=== PATIENT | male | born 2000 | race African-American/Black ===

== ENCOUNTER 2020-12-14 22:26 | Emergency (ER) | payer BC ==
[2020-12-14 23:09] LABS: Absolute Lymphocytes (CBC) 1.7 K/uL (0.7-4.9); Basophils % 0.8 % (0-1.3); Hematocrit 46.1 % (39.6-49.0); MPV 9.3 fL (7.6-11.3); RBC Red Blood Cell Count 5.24 M/uL (4.33-5.43)
[2020-12-14 23:18] LABS: BUN Blood Urea Nitrogen 12 mg/dL (7-18); Bicarbonate 30 mmol/L (21-32); Glucose Level 93 mg/dL (74-106); Potassium 4.2 mmol/L (3.5-5.1); Sodium Level 140 mmol/L (136-145)
--- NOTE | 2020-12-14 23:38 | EDPHYS ---
Physician Documentation [facility] Name: Bentley Perez Age: 20 yrs Sex: Male : 2000 Arrival Date: 12/14/2020 Time: 22:29 Bed 20 Private MD: ED Physician Yrn Sher HPI: 12/14 22:36 This 20 yrs old Black Male presents to ER via Law Enforcement with complaints of pm1 Swallowed Foreign Body. 22:36 Patient reports swallowing a razor blade to come to the ER. Onset: The symptoms/episode pm1 began/occurred just prior to arrival. Severity of symptoms: Pain is currently a 0 / 10. The patient has not experienced similar symptoms in the past. The patient has not recently seen a physician. 22:36 Patient escorted here by police officers from detention. pm1 Historical: - Allergies: 22:34 No Known Allergies; sf - Home Meds: 22:34 None [Active]; sf - PMHx: 22:34 None; sf - PSHx: 22:34 None; sf - Immunization history:: Adult Immunizations up to date. - Social history:: Smoking status: Patient reports the use of cigarette tobacco products, denies chronic smoking, but will smoke occasionally, Patient/guardian denies using alcohol, street drugs. ROS: 22:36 Constitutional: Negative for fever, chills, and weight loss, ENT: Negative for injury, pm1 pain, and discharge, Neck: Negative for injury, pain, and swelling, Cardiovascular: Negative for chest pain, palpitations, and edema, Respiratory: Negative for shortness of breath, cough, wheezing, and pleuritic chest pain, Abdomen/GI: Negative for abdominal pain, nausea, vomiting, diarrhea, and constipation, Back: Negative for injury and pain, MS/Extremity: Negative for injury and deformity, Skin: Negative for injury, rash, and discoloration. 22:36 Neuro: Negative for headache, weakness, numbness, tingling, and seizure. Exam: 22:36 Constitutional: This is a well developed, well nourished patient who is awake, alert, pm1 and in no acute distress. Head/Face: Normocephalic, atraumatic. 22:36 Neck: Trachea midline, no thyromegaly or masses palpated, and no cervical lymphadenopathy. Supple, full range of motion without nuchal rigidity, or vertebral point tenderness. No Meningismus. 22:36 Skin: Warm, dry with normal turgor. Normal color with no rashes, no lesions, and no evidence of cellulitis. MS/ Extremity: Pulses equal, no cyanosis. Neurovascular intact. Full, normal range of motion. 22:36 ENT: Posterior pharynx: is normal, airway is patent, no signs of bleeding. 22:36 Cardiovascular: Exam negative for acute changes, Rate: normal, Rhythm: regular, Pulses: no pulse deficits are appreciated. 22:36 Respiratory: Exam negative for acute changes, respiratory distress, shortness of breath. 22:36 Abdomen/GI: Exam negative for acute changes, Inspection: abdomen appears normal, Palpation: abdomen is soft and non-tender, in all quadrants. 22:36 Neuro: Exam negative for acute changes, Orientation: is normal, Mentation: is normal, Motor: is normal, moves all fours. Vital Signs: 22:30 BP 141 / 75; Pulse 73; Resp 16; Temp 98.1; Pulse Ox 100% ; Weight 70.76 kg; Height 5 sf ft. 6 in. (167.64 cm); Pain 7/10; 23:53 BP 129 / 83; Pulse 75; Resp 16; Pulse Ox 100% ; sf 22:30 Body Mass Index 25.18 (70.76 kg, 167.64 cm) sf MDM: 22:34 Patient medically screened. pm1 23:36 Data reviewed: vital signs. Data interpreted: Pulse oximetry: on room air is 100 %. pm1 Interpretation: normal. Counseling: I had a detailed discussion with the patient and/or guardian regarding: the historical points, exam findings, and any diagnostic results supporting the discharge/admit diagnosis, lab results, radiology results, the need for outpatient follow up, to return to the emergency department if symptoms worsen or persist or if there are any questions or concerns that arise at home. 12/14 22:33 Order name: CBC with Diff pm1 12/14 22:33 Order name: BMP; Complete Time: 23:34 pm1 12/14 22:34 Order name: CBC with Automated Diff; Complete Time: 23:15 EDMS 12/14 22:39 Order name: Chest Single View XRAY pm1 12/14 22:39 Order name: XRAY Abdomen 1 View (KUB) pm1 12/14 22:33 Order name: IV Saline Lock; Complete Time: 22:47 pm1 Administered Medications: No medications were administered Disposition: 12/15 06:58 Co-signature as Attending Physician, Yrn Sher MD I agree with the assessment and [facility] plan of care. Disposition: 12/14/20 23:37 Discharged to Home. Impression: Person with feared health complaint in whom no diagnosis is made. - Condition is Stable. - Medication Reconciliation Form, Thank You Letter, Antibiotic Education, Prescription Opioid Use form. - Follow up: Emergency Department; When: As needed; Reason: Worsening of condition. Follow up: Private Physician; When: 2 - 3 days; Reason: Recheck today's complaints, Continuance of care, Re-evaluation by your physician. - Problem is new. - Symptoms are unchanged. Signatures: Dispatcher [employer] [facility] Yrn Sher MD MD cha Marinas, Patrick, COMMISSARY STEWARD COMMISSARY STEWARD pm1 Maximino Casey RN RN sf Corrections: (The following items were deleted from the chart) 12/14 23:00 22:34 Abdomen Acute Series+RAD.RAD.BRZ ordered. [facility] 23:53 23:37 12/14/2020 23:37 Discharged to Home. Impression: Person with feared health sf complaint in whom no diagnosis is made. Condition is Stable. Forms are Medication Reconciliation Form, Thank You Letter, Antibiotic Education, Prescription Opioid Use. Follow up: Emergency Department; When: As needed; Reason: Worsening of condition. Follow up: Private Physician; When: 2 - 3 days; Reason: Recheck today's complaints, Continuance of care, Re-evaluation by your physician. Problem is new. Symptoms are unchanged. pm1
--- NOTE | 2020-12-14 23:38 | ER ---
Nurse's Notes [facility] Name: Bentley Perez Age: 20 yrs Sex: Male : 2000 Arrival Date: 12/14/2020 Time: 22:29 Bed 20 Private MD: Diagnosis: Person with feared health complaint in whom no diagnosis is made Presentation: 12/14 22:30 Chief complaint: Patient states: From [facility], swallowed a razor blade at 1900, sf complains of mild abdominal pain, no nausea, no vomiting, no bleeding. Coronavirus screen: Client denies travel out of the [place] in the last 14 days. At this time, the client does not indicate any symptoms associated with coronavirus-19. Ebola Screen: Patient negative for fever greater than or equal to 101.5 degrees Fahrenheit, and additional compatible Ebola Virus Disease symptoms Patient denies exposure to infectious person. Patient denies travel to an Ebola-affected area in the 21 days before illness onset. No symptoms or risks identified at this time. Initial Sepsis Screen: Does the patient meet any 2 criteria? No. Patient's initial sepsis screen is negative. Does the patient have a suspected source of infection? No. Patient's initial sepsis screen is negative. Risk Assessment: Do you want to hurt yourself or someone else? Patient reports no desire to harm self or others. Onset of symptoms was December 14, 2020 at 19:00. 22:30 Method Of Arrival: Law Enforcement: [place] [employer] 22:30 Acuity: DORIS 3 sf Triage Assessment: 22:34 General: Appears in no apparent distress. comfortable, Behavior is calm, cooperative. sf Pain: Complains of pain in abdomen Pain currently is 7 out of 10 on a pain scale. Neuro: No deficits noted. Level of Consciousness is awake, alert, Oriented to person, place, time, situation. Cardiovascular: No deficits noted. Patient's skin is warm and dry. Respiratory: No deficits noted. Airway is patent Respiratory effort is even, unlabored, Respiratory pattern is regular, symmetrical. GI: Abdomen is non-distended, Reports lower abdominal pain, Patient currently denies diarrhea, nausea, vomiting. : No signs and/or symptoms were reported regarding the genitourinary system. Historical: - Allergies: 22:34 No Known Allergies; sf - Home Meds: 22:34 None [Active]; sf - PMHx: 22:34 None; sf - PSHx: 22:34 None; sf - Immunization history:: Adult Immunizations up to date. - Social history:: Smoking status: Patient reports the use of cigarette tobacco products, denies chronic smoking, but will smoke occasionally, Patient/guardian denies using alcohol, street drugs. Screenin:35 Abuse screen: Denies threats or abuse. Denies injuries from another. Nutritional sf screening: No deficits noted. Tuberculosis screening: No symptoms or risk factors identified. Never had TB. Possible symptoms: None Risk factors: None. Fall Risk None identified. No fall in past 12 months (0 pts). No secondary diagnosis (0 pts). IV access (20 points). Ambulatory Aid- None/Bed Rest/Nurse Assist (0 pts). Gait- Normal/Bed Rest/Wheelchair (0 pts) Mental Status- Oriented to own ability (0 pts). Total Montez Fall Scale indicates No Risk (0-24 pts). Assessment: 22:36 Reassessment: SEE TRIAGE ASSESSMENT. sf Vital Signs: 22:30 BP 141 / 75; Pulse 73; Resp 16; Temp 98.1; Pulse Ox 100% ; Weight 70.76 kg; Height 5 sf ft. 6 in. (167.64 cm); Pain 7/10; 23:53 BP 129 / 83; Pulse 75; Resp 16; Pulse Ox 100% ; sf 22:30 Body Mass Index 25.18 (70.76 kg, 167.64 cm) ED Course: 22:29 Patient arrived in ED. mw2 22:30 Maximino Casey RN is Primary Nurse. sf 22:30 Jose Dempsey NP is PHCP. pm1 22:30 Yrn Sher MD is Attending Physician. pm1 22:34 Triage completed. sf 22:34 Arm band placed on. sf 22:36 Patient has correct armband on for positive identification. Bed in low position. Call sf light in reach. Side rails up X 1. Pulse ox on. NIBP on. Door closed. Noise minimized. Visitors limited. Lights dimmed. Verbal reassurance given. 22:40 Initial lab(s) drawn, by me, sent to lab. Inserted saline lock: 20 gauge in right sf antecubital area, using aseptic technique. Blood collected. 22:47 CBC with Diff Sent. sf 22:47 Chest Single View XRAY Sent. sf 22:47 XRAY Abdomen 1 View (KUB) Sent. sf 22:47 X-ray(s) taken. sf 23:00 Chest Single View XRAY In Process Unspecified. EDMS 23:00 XRAY Abdomen 1 View (KUB) In Process Unspecified. EDMS 23:52 No provider procedures requiring assistance completed. IV discontinued, intact, sf bleeding controlled, No redness/swelling at site. Pressure dressing applied. 12/15 00:05 Authorization code [id number]. mw2 Administered Medications: No medications were administered Outcome: 12/14 23:37 Discharge ordered by . pm1 23:52 Discharged to Law Enforcement 23:52 Condition: stable 23:52 Discharge instructions given to patient, Instructed on discharge instructions, follow up and referral plans. Demonstrated understanding of instructions, follow-up care. 23:53 Patient left the ED. sf Signatures: Dispatcher [employer] EDOK Jose Dempsey NP NEIGHBORHOOD WORKER pm1 Daphne Bello mw2 Maximino Casey, RN RN sf
[2020-12-15 01:02] VITALS: BP 141/75; TEMP 98.1; O2SAT 100
--- NOTE | 2020-12-15 07:37 | RAD REPORT ---
EXAM DESCRIPTION: RAD - Abdomen 1 View (KUB) - 12/14/2020 11:00 pm CLINICAL HISTORY: Abdomen pain. Swallowed a foreign body FINDINGS: The bowel gas pattern is unremarkable. A radiopaque foreign body is not seen
--- NOTE | 2020-12-15 07:38 | RAD REPORT ---
EXAM DESCRIPTION: Michelle Single View12/14/2020 11:00 pm CLINICAL HISTORY: Chest pain/swallowed a foreign body COMPARISON: none FINDINGS: The lungs appear clear of acute infiltrate. The heart is normal size A radiopaque foreign body is not seen IMPRESSION: No acute abnormalities displayed
== END 2020-12-14 23:53 | disposition home or self-care (01) ==
LOC: ER 22:26
DX: Z71.1 Person with feared health complaint in whom no diagnosis is made (principal); F17.210 Nicotine dependence, cigarettes, uncomplicated
CPT/HCPCS: 36415; 71045; 74018; 80048; 85025; 99284

== ENCOUNTER 2020-12-15 16:19 | Emergency (ER) | payer BC ==
--- NOTE | 2020-12-15 16:54 | RAD REPORT ---
EXAM DESCRIPTION: RAD - Chest Single View - 12/15/2020 4:44 pm CLINICAL HISTORY: fb, foreign body ingestion COMPARISON: December 14 TECHNIQUE: AP portable chest image was obtained 12/15/2020 4:44 pm . FINDINGS: Lungs are clear. Heart and vasculature are normal. No measurable pleural effusion and no p neumothorax. Metallic foreign body is present in the midline lower chest indicating distal thoracic e sophagus positioning. No acute aortic findings suspected. IMPRESSION: Metallic foreign body is in the distal thoracic esophagus.
--- NOTE | 2020-12-15 16:58 | RAD REPORT ---
EXAM DESCRIPTION: RAD - Abdomen 1 View (KUB) - 12/15/2020 4:44 pm CLINICAL HISTORY: fb Foreign body ingestion COMPARISON: Single-view chest same date, KUB December 14 FINDINGS: Metallic foreign body overlies the low midline chest indicating distal thoracic esophagus position. There is a second metallic foreign body in the left mid abdomen. Location of the second abd ominal foreign body is less definitive. The patient could have a J-shaped stomach that extends low in to the abdomen. Alternatively, the foreign body would be in the small bowel. Positioning in the colon is not suspected. No bowel obstruction, free air or pneumatosis identifiable. No significant bony findings IMPRESSION: Two foreign bodies are present. I foreign bodies in the distal thoracic esophagus. The second foreign body is in the left mid abdomen near the midline. This could be small bowel or pos sibly still within the lumen of a J shaped stomach. No free air, pneumatosis or other finding to suspect perforation.
[2020-12-15 17:31] LABS: Basophils % 0.7 % (0-1.3); Hematocrit 44.4 % (39.6-49.0); Lymphocytes % 27.3 % (15.3-44.8); RBC Red Blood Cell Count 5.07 M/uL (4.33-5.43)
[2020-12-15 17:45] LABS: BUN Blood Urea Nitrogen 7 mg/dL (7-18); Bicarbonate 32 mmol/L (21-32); Glucose Level 98 mg/dL (74-106); Potassium 4.1 mmol/L (3.5-5.1); Sodium Level 142 mmol/L (136-145)
--- NOTE | 2020-12-15 20:45 | ER ---
Nurse's Notes [facility] Name: Bentley Perez Age: 20 yrs Sex: Male : 2000 Arrival Date: 12/15/2020 Time: 16:20 Bed 30 Private MD: Diagnosis: Foreign body in esophagus;Foreign body in stomach Presentation: 12/15 16:21 Chief complaint: Patient states: swallowed "chicken wire" at 9 am this morning. Pt ss states he was feeling crazy when he did it. Admits to smoking synthetic marijuana regularly. 16:21 Coronavirus screen: Client denies travel out of the [place] in the last 14 days. Ebola ss Screen: Patient denies exposure to infectious person. Patient denies travel to an Ebola-affected area in the 21 days before illness onset. Initial Sepsis Screen: Does the patient meet any 2 criteria? No. Patient's initial sepsis screen is negative. Does the patient have a suspected source of infection? No. Patient's initial sepsis screen is negative. Risk Assessment: Do you want to hurt yourself or someone else? Patient reports no desire to harm self or others. 16:21 Method Of Arrival: Law Enforcement: [place] [employer] 16:21 Acuity: DORIS 3 ss 16:21 Onset of symptoms was December 15, 2020 at 09:00. ss Historical: - Allergies: 16:22 No Known Allergies; ss - Home Meds: 16:22 None [Active]; ss - PMHx: 16:22 None; ss - PSHx: 16:22 None; ss - Immunization history:: Adult Immunizations up to date. - Social history:: Smoking status: Patient denies any tobacco usage or history of. Patient uses synthetic marijuana (K2). Screenin:23 Abuse screen: Denies threats or abuse. Denies injuries from another. Nutritional ss screening: No deficits noted. Tuberculosis screening: Never had TB. Fall Risk None identified. Assessment: 16:21 Reassessment:. General: Appears in no apparent distress. comfortable, Behavior is calm, ss cooperative. Pain: Complains of pain in abdomen Pain currently is 6 out of 10 on a pain scale. Quality of pain is described as aching, Pain began this morning Is continuous. Neuro: Level of Consciousness is awake, alert, obeys commands, Oriented to person, place, time, situation. Cardiovascular: Capillary refill < 3 seconds is brisk in bilateral fingers. Respiratory: Airway is patent Respiratory effort is even, unlabored, Respiratory pattern is regular, symmetrical. GI: Patient currently denies diarrhea, nausea, vomiting. EENT: Nares are clear. Derm: Skin is intact, is healthy with good turgor, Skin is dry, Skin is pink, warm \\T\\ dry. normal. Musculoskeletal: Circulation, motion, and sensation intact. Range of motion: intact in all extremities, Pt remains in forensic restraints with two guards at bedside. 16:46 Reassessment: Pt back from XRAY. No apparent distress noted. ss 17:27 General: Appears comfortable, Behavior is calm, cooperative. Pain: Denies pain. aa5 Respiratory: Airway is patent Respiratory effort is even, unlabored, Respiratory pattern is regular, symmetrical. Derm: Skin is dry, Skin is normal, Skin temperature is warm. 19:30 Reassessment: Patient is alert, oriented x 3, equal unlabored respirations, skin bb warm/dry/pink. pt resting quietly, [employer] guards at bedside. 21:16 Reassessment: Patient is alert, oriented x 3, equal unlabored respirations, skin bb warm/dry/pink. pt resting quietly, [employer] guards at bedside, awaiting transfer. 21:40 Reassessment: report given to Alberto WONG at [facility]. bb 22:19 Reassessment: pt resting quietly, resp unlabored, awaiting transportation to [facility], [employer] guards at bedside. 23:56 Reassessment: Patient is alert, oriented x 3, equal unlabored respirations, skin bb warm/dry/pink. IV to right AC intact, no erythema or edema noted, EMS at bedside for transfer of pt to [facility]. Pt is accompanied by [employer] guards. Vital Signs: 16:21 Pulse 86; Temp 98.4(TE); Pulse Ox 99% on R/A; ss 16:22 Resp 16; Weight 70.76 kg; Height 5 ft. 6 in. (167.64 cm); Pain 6/10; ss 17:05 BP 124 / 65; Pulse 62; Resp 16; Temp 98.3; Pulse Ox 97% ; ds4 22:49 BP 134 / 115; Pulse 77; Resp 16 S; Pulse Ox 97% on R/A; bb 23:57 BP 112 / 53; Pulse 59; Resp 16 S; Temp 98.3(O); Pulse Ox 100% on R/A; bb 16:22 Body Mass Index 25.18 (70.76 kg, 167.64 cm) ED Course: 16:20 Patient arrived in ED. ss 16:21 [facility] Murdock [facility]-C [facility]. kb 16:21 Kenneth Gonzalez MD is Attending Physician. kb 16:22 Arm band placed on right wrist. ss 16:23 Patient has correct armband on for positive identification. Bed in low position. Call light in reach. 16:29 Margie Brown, MARVIN is Primary Nurse. ss 16:38 Triage completed. ss 16:42 Abdomen 1 View (KUB) XRAY In Process Unspecified. EDMS 16:42 Chest Single View XRAY In Process Unspecified. EDMS 17:25 Initial lab(s) drawn, by me, sent to lab. Inserted saline lock: 20 gauge in right aa5 antecubital area, using aseptic technique. Blood collected. 18:18 initiated transfer to [facility], pt will be considered when covid test is bd complete. 19:05 Report given to Deloris Rabago RN. aa5 19:15 Called [facility] to update them on the covid results and spoke with Juan Pablo at 1923. tt3 Stated he would start working on the request. 21:41 No provider procedures requiring assistance completed. bb 22:21 Patient transferred, IV remains in place. bb Administered Medications: No medications were administered Outcome: 20:44 ER care complete, transfer ordered by . kb 22:20 Instructed on the need for transfer. bb 23:57 Transferred by ground EMS Transfer form completed. X-rays sent w/ patient. Note: pt bb accompanied by [employer] guards 23:57 Condition: stable 23:58 Patient left the ED. bb Signatures: Dispatcher [employer] EDMS Mirta Murdock FNP-C FNP-Marleni Lancaster Brenda, RN RN bb Mihaela Mata RN RN aa5 Margie Brown RN RN Royce Sutton ds4 Jake Reyes tt3 Corrections: (The following items were deleted from the chart) 21:19 17:05 BP 124 / 65; ss ds4
--- NOTE | 2020-12-15 20:45 | EDPHYS ---
Physician Documentation [facility] Name: Bentley Perez Age: 20 yrs Sex: Male : 2000 Arrival Date: 12/15/2020 Time: 16:20 Bed 30 Private MD: ED Physician Kenneth Gonzalez HPI: 12/15 17:44 This 20 yrs old Black Male presents to ER via [employer] with complaints of kb Swallowed Foreign Body. 17:44 The patient or guardian reports the patient has a suspected foreign body, that has been kb ingested. The reported likely foreign body is a piece of metal. Onset: The symptoms/episode began/occurred today, at 09:00. Current symptoms: foreign body sensation. Treatment Prior to Arrival: none. The patient has not experienced similar symptoms in the past. The patient has been recently seen at the [facility] Emergency Department. Pt reports he swallowed a couple of pieces of metal off of a fence. Denies suicidal ideations. States "I was just feeling crazy". Historical: - Allergies: 16:22 No Known Allergies; ss - Home Meds: 16:22 None [Active]; ss - PMHx: 16:22 None; ss - PSHx: 16:22 None; ss - Immunization history:: Adult Immunizations up to date. - Social history:: Smoking status: Patient denies any tobacco usage or history of. Patient uses synthetic marijuana (K2). ROS: 17:43 Constitutional: Negative for fever, chills, and weight loss, ENT: Negative for injury, kb pain, and discharge, Cardiovascular: Negative for chest pain, palpitations, and edema, Respiratory: Negative for shortness of breath, cough, wheezing, and pleuritic chest pain, Abdomen/GI: Negative for abdominal pain, nausea, vomiting, diarrhea, and constipation, MS/Extremity: Negative for injury and deformity, Skin: Negative for injury, rash, and discoloration, Neuro: Negative for headache, weakness, numbness, tingling, and seizure. Exam: 17:43 Constitutional: This is a well developed, well nourished patient who is awake, alert, kb and in no acute distress. Head/Face: Normocephalic, atraumatic. Cardiovascular: Regular rate and rhythm with a normal S1 and S2. No gallops, murmurs, or rubs. No pulse deficits. Respiratory: Respirations even and unlabored. No increased work of breathing, no retractions or nasal flaring. Abdomen/GI: Soft, non-tender. No distention Skin: Warm, dry with normal turgor. Normal color. MS/ Extremity: Pulses equal, no cyanosis. Neurovascular intact. Full, normal range of motion. Neuro: Awake and alert, GCS 15, oriented to person, place, time, and situation. Moves all extremities. Normal gait. Vital Signs: 16:21 Pulse 86; Temp 98.4(TE); Pulse Ox 99% on R/A; ss 16:22 Resp 16; Weight 70.76 kg; Height 5 ft. 6 in. (167.64 cm); Pain 6/10; ss 17:05 BP 124 / 65; Pulse 62; Resp 16; Temp 98.3; Pulse Ox 97% ; ds4 22:49 BP 134 / 115; Pulse 77; Resp 16 S; Pulse Ox 97% on R/A; bb 23:57 BP 112 / 53; Pulse 59; Resp 16 S; Temp 98.3(O); Pulse Ox 100% on R/A; bb 16:22 Body Mass Index 25.18 (70.76 kg, 167.64 cm) ss MDM: 16:21 Patient medically screened. kb 17:43 Data reviewed: vital signs, nurses notes. Data interpreted: Pulse oximetry: on room air kb is 99 %. Interpretation: normal. Counseling: I had a detailed discussion with the patient and/or guardian regarding: the historical points, exam findings, and any diagnostic results supporting the discharge/admit diagnosis, lab results, radiology results, the need to transfer to another facility, [facility] transfer. 19:51 Physician consultation: Carroll Page MD was contacted at 19:52, regarding consult, kb after a discussion of the case, a recommendation for transfer for higher level of care is made, needs thoracic surgery. ED course: [facility] has no bed for pt. [facility] gave authorization to transfer to any facility. 20:36 ED course: Transfer initiated to [facility]. kb 20:43 ED course: Managed care called back. A bed opened up. Transfer to [facility] cancelled. . kb 21:03 ED course: Pt accepted by general surgeon for consult. Awaiting callback from medicine kb service. 21:07 ED course: Pt accepted for transfer by Dr Dc with [facility] medicine. kb 12/15 16:57 Order name: CBC with Diff; Complete Time: 17:37 kb 12/15 16:57 Order name: Basic Metabolic Panel; Complete Time: 17:45 kb 12/15 16:22 Order name: Abdomen 1 View (KUB) XRAY; Complete Time: 16:59 kb 12/15 17:22 Order name: COVID-19 : Document "Date of Symptom Onset" if Symptomatic. bd 12/15 19:06 Order name: SARS-COV-2 RT PCR; Complete Time: 19:12 EDMS 12/15 16:23 Order name: Chest Single View XRAY; Complete Time: 16:57 kb 12/15 16:57 Order name: IV Start; Complete Time: 17:27 kb Administered Medications: No medications were administered Disposition: 12/16 08:11 Co-signature as Attending Physician, Kenneth Gonzalez MD I agree with the assessment and kdr plan of care. Disposition: 12/15/20 20:44 Transfer ordered to [facility]. Diagnosis are Foreign body in esophagus, Foreign body in stomach. - Reason for transfer: Higher level of care. - Accepting physician is Dc. - Condition is Stable. - Problem is new. - Symptoms are unchanged. Signatures: Dispatcher [employer] EDID Mirta Murdock, CHILD NUTRITION DIRECTOR-C CHILD NUTRITION DIRECTOR-Ckb Kenneth Gonzalez MD MD kdr Deloris Rabago RN RN bb Smirch, Shelby, RN RN ss Corrections: (The following items were deleted from the chart) 12/15 18:26 17:22 CORONAVIRUS ordered. EDID EDMS 20:38 17:44 Pt reports he swallowed a couple of pieces of metal off of a fence. kb kb 21:07 20:44 12/15/2020 20:44 Transfer ordered to [facility]. Diagnosis is Foreign body in kb esophagus; Foreign body in stomach. Reason for transfer: Higher level of care. Accepting physician is [facility]. Condition is Stable. Problem is new. Symptoms are unchanged. kb 23:58 21:07 12/15/2020 20:44 Transfer ordered to [facility]. Diagnosis is Foreign body in bb esophagus; Foreign body in stomach. Reason for transfer: Higher level of care. Accepting physician is Dc. Condition is Stable. Problem is new. Symptoms are unchanged. kb
[2020-12-16 03:52] VITALS: TEMP 98.3
[2020-12-16 03:54] VITALS: BP 112/53; O2SAT 100
== END 2020-12-15 23:58 | disposition short-term general hospital (02) ==
LOC: ER 16:19
DX: T18.108A Unspecified foreign body in esophagus causing other injury, initial encounter (principal); T18.2XXA Foreign body in stomach, initial encounter; Z20.822 Contact with and (suspected) exposure to COVID-19
CPT/HCPCS: 85025; 80048; 36415; 74018; 71045; 99285; U0003